=== PATIENT | male | born 1970 | race Hispanic/Latino ===

== ENCOUNTER 2021-03-02 18:34 | Emergency (ER) | payer MEDICARE, MEDICAID ==
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
[2021-03-02 20:22] LABS: Mean Corpuscular HGB Conc 36 % (32-34); Mean Corpuscular Volume 97 fl (84-94); Platelet Count 232 K/mm3 (140-440); Red Blood Count 4.34 M/mm3 (3.65-5.03)
[2021-03-02 20:37] LABS: Blood Urea Nitrogen 11 mg/dL (9-20); Calcium 9.9 mg/dL (8.4-10.2); Hemolysis Index 8
[2021-03-02 20:45] LABS: BUN/Creatinine Ratio 16
[2021-03-03 08:07] VITALS: BP 139/96
[2021-03-03 09:03] LABS: Amphetamine Screen,Urine Negative; Benzodiazepines Screen,Urine Negative; Cannabinoid Screen,Urine Negative; Cocaine Screen,Urine Negative; Methadone Screen,Urine Negative; Opiate Screen,Urine Negative
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
--- NOTE | 2021-03-03 11:02 | Event Note ---
Date: 03/03/21 The patient was evaluated in the emergency department for symptoms described in the history of present illness. He/she was evaluated in the context of the global COVID-19 pandemic, which necessitated consideration that the patient might be at risk for infection with the virus that causes COVID-19. Institutional protocols and algorithms that pertain to the evaluation of patients at risk for COVID-19 are in a state of rapid change based on information released by regulatory bodies including the CDC and federal and state organizations. These policies and algorithms were followed during the patient's care in the emergency department. Please note that these policies, procedures and recommendations changed on a rapid basis. Laboratory studies, vital signs, nursing documentation, ER documentation, and psychiatric documentation are reviewed and appreciated. Nursing team reports no acute events this morning or concerns. The patient is awake and ambulating and does not appear to be in any acute distress. The patient was deemed medically suitable for psychiatric disposition and placement during his initial ER evaluation. The patient continues to remain medically suitable for psychiatric placement and disposition. The psychiatric team have recommended discharge from a psychiatric perspective. They recommend this patient does not require 1013 or involuntary confinement. The patient states that he would like a bus pass to go to [facility]. Case management consultation placed to facilitate this process. The patient may be discharged to our waiting room, where case management may presents him with his bus pass. Please note that documented heart rate of 20 bpm is an error. Have addressed this with nursing team, they will correct this Vital Signs - 24 hr 03/02/21 03/02/21 03/03/21 19:49 22:55 01:43 Temperature 98.5 F Pulse Rate 105 H 96 H 86 Respiratory 16 16 Rate Blood Pressure 145/88 [Left] O2 Sat by Pulse 98 98 98 Oximetry 03/03/21 03/03/21 06:30 08:06 Temperature 97.6 F Pulse Rate 83 20 L Respiratory 17 20 Rate Blood Pressure 125/90 139/96 [Left] O2 Sat by Pulse 98 97 Oximetry Lab Results 03/02/21 03/02/21 03/02/21 Range/Units 19:52 19:52 19:52 WBC 13.4 H (4.5-11.0) K/mm3 RBC 4.34 (3.65-5.03) M/mm3 Hgb 15.0 (11.8-15.2) gm/dl Hct 42.0 (35.5-45.6) % MCV 97 H (84-94) fl MCH 35 H (28-32) pg MCHC 36 H (32-34) % RDW 13.0 L (13.2-15.2) % Plt Count 232 (140-440) K/mm3 Sodium 135 L (137-145) mmol/L Potassium 4.1 (3.6-5.0) mmol/L Chloride 98.0 (98-107) mmol/L Carbon Dioxide 25 (22-30) mmol/L Anion Gap 16 mmol/L BUN 11 (9-20) mg/dL Creatinine 0.7 L (0.8-1.3) mg/dL Estimated GFR > 60 ml/min BUN/Creatinine Ratio 16 % Glucose 103 H (75-100) mg/dL Calcium 9.9 (8.4-10.2) mg/dL TSH 1.740 (0.270-4.200) mlU/mL Urine Opiates Screen Urine Methadone Screen Ur Barbiturates Screen Ur Phencyclidine Scrn Ur Amphetamines Screen U Benzodiazepines Scrn Urine Cocaine Screen U Marijuana (THC) Screen Drugs of Abuse Note Plasma/Serum Alcohol (0-0.07) % 03/02/21 03/03/21 Range/Units 19:52 Unknown WBC (4.5-11.0) K/mm3 RBC (3.65-5.03) M/mm3 Hgb (11.8-15.2) gm/dl Hct (35.5-45.6) % MCV (84-94) fl MCH (28-32) pg MCHC (32-34) % RDW (13.2-15.2) % Plt Count (140-440) K/mm3 Sodium (137-145) mmol/L Potassium (3.6-5.0) mmol/L Chloride (98-107) mmol/L Carbon Dioxide (22-30) mmol/L Anion Gap mmol/L BUN (9-20) mg/dL Creatinine (0.8-1.3) mg/dL Estimated GFR ml/min BUN/Creatinine Ratio % Glucose (75-100) mg/dL Calcium (8.4-10.2) mg/dL TSH (0.270-4.200) mlU/mL Urine Opiates Screen Negative Urine Methadone Screen Negative Ur Barbiturates Screen Negative Ur Phencyclidine Scrn Negative Ur Amphetamines Screen Negative U Benzodiazepines Scrn Negative Urine Cocaine Screen Negative U Marijuana (THC) Screen Negative Drugs of Abuse Note Disclamer Plasma/Serum Alcohol < 0.01 (0-0.07) % 11: 49; 03/03/2021 Psychiatric documentation reviewed and appreciated. Vital signs documented, reviewed and appreciated. Patient medically suitable for discharge at this time Vital Signs 03/02/21 03/02/21 03/03/21 19:49 22:55 01:43 Temperature 98.5 F Pulse Rate 105 H 96 H 86 Respiratory 16 16 Rate Blood Pressure 145/88 [Left] O2 Sat by Pulse 98 98 98 Oximetry 03/03/21 03/03/21 03/03/21 06:30 08:06 11:02 Temperature 97.6 F Pulse Rate 83 80 Respiratory 17 20 Rate Blood Pressure 125/90 139/96 [Left] O2 Sat by Pulse 98 97 97 Oximetry
== END 2021-03-03 13:07 | disposition home or self-care (01) ==
LOC: ED 18:34
DX: R45.851 Suicidal ideations (principal); Z20.822 Contact with and (suspected) exposure to COVID-19; R94.6 Abnormal results of thyroid function studies
CPT/HCPCS: 36415; 80048; 80307; 84443; 85027; 99284; U0003; 80320; G0480